=== PATIENT | male | born 1950 | race Caucasian/White ===

== ENCOUNTER → 2017-04-07 | Outpatient (CLI) | payer MEDICARE, OTHER ==
[~2017-04-07] VITALS: Ht 175.3 cm; Wt 65.5 kg
[~2017-04-07] MED LIST: BENZOCAINE 20% ORAL SPR 60 ML CAN OROPHARYNG ONE; LIDOCAINE HCL 2% JELLY 5 ML SYRINGE TOPICAL ONE; PANT40TA3 PO; ZANTTAB PO
[2017-04-07 09:08] VITALS: BP 114/56; PULSE 56; RESP 16; TEMP 97.7; O2SAT 100
== END ==
LOC: HEND 08:41
DX: K21.9 Gastro-esophageal reflux disease without esophagitis (principal); K46.9 Unspecified abdominal hernia without obstruction or gangrene
CPT/HCPCS: 91010